=== PATIENT | female | born 1985 | race Caucasian/White ===

== ENCOUNTER 2019-01-23 12:52 | Emergency (ER) | payer BC, OTHER ==
[~2019-01-23] VITALS: Ht 190.5 cm; Wt 84.9 kg
[2019-01-23 13:11] VITALS: BP 142/75
== END 2019-01-23 14:17 | disposition home or self-care (01) ==
LOC: ED 14:15
DX: Z77.21 Contact with and (suspected) exposure to potentially hazardous body fluids (principal)
CPT/HCPCS: 36415; 80053; 85025; 86705; 86706; 86803; 87340; 87389; 99283